=== PATIENT | male | born 1995 | race African-American/Black ===

== ENCOUNTER 2019-04-25 10:07 | Emergency (ER) | payer MEDICAID ==
[~2019-04-25] VITALS: Ht 177.8 cm; Wt 61.2 kg
[2019-04-25 10:14] VITALS: BP 124/67
[2019-04-25 11:01] LABS: Basophils # (auto) 0 uL; Basophils % (auto) 0.4 % (0.0-2.0); Eosinophils # (auto) 0 uL; Eosinophils % (auto) 0.4 % (0.0-7.0); Hematocrit 48.4 % (41.0-53.0); Hemoglobin 16.6 g/dL (13.5-17.5); Lymphocytes # (auto) 1.7 uL; Mean Corpuscular Hemoglobin 29.4 pg (28.0-32.0); Mean Corpuscular Hgb Conc. 34.2 g/dL (32.0-36.0); Mean Corpuscular Volume 85.8 fL (80.0-100.0); Monocytes # (auto) 0.5 uL; Monocytes % (auto) 7.2 % (0.0-12.0); Nucleated Red Blood Cells % 0.1 %; Platelet Count (auto) 208 10^3/uL (140-450); Red Blood Cells 5.64 10^6/uL (4.5-5.90); Red Cell Distribution Width 13.5 % (11.8-14.3); White Blood Cell 7.3 10^3/uL (4.4-10.8)
[2019-04-25 11:21] LABS: Anion Gap 6 (5-15); Blood Urea Nitrogen 8 mg/dL (7-18); Carbon Dioxide 27 mmol/L (21-32); Chloride 106 mmol/L (98-107); Glucose 81 mg/dL (74-106); Potassium 3.7 mmol/L (3.5-5.1); Sodium 139 mmol/L (136-145)
[2019-04-25 11:27] LABS: BUN/Creatinine Ratio 10.5; GFR African American 161 mL/min; GFR Non-African American 133 mL/min
== END 2019-04-25 11:57 | disposition home or self-care (01) ==
LOC: ER 10:07
DX: R07.89 Other chest pain (principal); R20.2 Paresthesia of skin
CPT/HCPCS: 36415; 71046; 80048; 84484; 85025; 93005

== ENCOUNTER 2019-06-03 10:17 | Emergency (ER) | payer OTHER, MEDICAID ==
[~2019-06-03] VITALS: Ht 175.3 cm; Wt 63.5 kg
[2019-06-03 11:12] VITALS: BP 118/69
[2019-06-03] MEDS ORDERED: IBUPROFEN 600 MG TAB PO ONE (12:30)
== END 2019-06-03 12:42 | disposition home or self-care (01) ==
LOC: ER 10:17
DX: M62.830 Muscle spasm of back (principal); M54.2 Cervicalgia; M54.6 Pain in thoracic spine; M54.5 Low back pain; V43.52XA Car driver injured in collision with other type car in traffic accident, initial encounter; Y93.89 Activity, other specified; Y92.488 Other paved roadways as the place of occurrence of the external cause; Y99.8 Other external cause status
CPT/HCPCS: 72040; 72100

== ENCOUNTER 2019-10-30 14:14 | Emergency (ER) | payer MEDICAID ==
[~2019-10-30] VITALS: Ht 177.8 cm; Wt 61.2 kg
[2019-10-30 15:54] VITALS: BP 131/71
[2019-10-30] MEDS ORDERED: LIDOCAINE 1% HCL (LOCAL ANESTH.) INJ 20ML MDV IJ ONE (16:45)
== END 2019-10-30 17:35 | disposition home or self-care (01) ==
LOC: ER 14:14
DX: S01.511A Laceration without foreign body of lip, initial encounter (principal); X58.XXXA Exposure to other specified factors, initial encounter; Y93.51 Activity, roller skating (inline) and skateboarding; Y92.89 Other specified places as the place of occurrence of the external cause; Y99.8 Other external cause status
CPT/HCPCS: 12011; 99283; J2001

== ENCOUNTER 2019-11-06 11:33 | Emergency (ER) | payer MEDICAID ==
[~2019-11-06] VITALS: Ht 177.8 cm; Wt 61.2 kg
[2019-11-06 11:39] VITALS: BP 126/87
== END 2019-11-06 12:50 | disposition home or self-care (01) ==
LOC: ER 11:33
DX: S01.511D Laceration without foreign body of lip, subsequent encounter (principal); X58.XXXD Exposure to other specified factors, subsequent encounter

== ENCOUNTER 2019-12-18 20:15 | Emergency (ER) | payer MEDICAID ==
[~2019-12-18] VITALS: Ht 177.8 cm; Wt 61.2 kg
[2019-12-18] MEDS ORDERED: TETRACAINE HCL 0.5% OPTH(EYE) SOLN 4ML LEFTEYE ONE (22:30)
[2019-12-18] MEDS ORDERED: FLUORESCEIN SOD 1 MG TEST STRIP LEFTEYE ONE (22:30)
[2019-12-18 23:15] VITALS: BP 123/68
== END 2019-12-18 23:25 | disposition home or self-care (01) ==
LOC: ER 20:15
DX: H10.89 Other conjunctivitis (principal)

== ENCOUNTER 2020-10-10 18:34 | Emergency (ER) | payer MEDICAID ==
[~2020-10-10] VITALS: Ht 177.8 cm; Wt 61.2 kg
[2020-10-10 18:36] VITALS: BP 151/106
[2020-10-10 19:11] LABS: Urine Bacteria NONE SEEN /hpf (None Seen); Urine Blood Negative /uL (Negative); Urine Mucus FEW (None Seen); Urine Specific Gravity 1.034 (1.001-1.035); Urine WBC 5 /hpf (0 - 3)
[2020-10-10 19:16] LABS: Cannabinoid Screen, Urine POSITIVE (NEGATIVE)
[2020-10-10 19:24] LABS: Amphetamine Screen, Urine NEGATIVE (NEGATIVE); Barbiturate Scree,Urine NEGATIVE (NEGATIVE); Benzodiazephine Screen, Urine NEGATIVE (NEGATIVE); Cocaine Screen, Urine POSITIVE (NEGATIVE); Opiate Scree,Urine NEGATIVE (NEGATIVE); Phencyclidine Screen, Urine NEGATIVE (NEGATIVE)
== END 2020-10-10 20:37 | disposition left against medical advice (07) ==
LOC: ER 18:36
DX: R10.84 Generalized abdominal pain (principal); R11.2 Nausea with vomiting, unspecified; Z53.21 Procedure and treatment not carried out due to patient leaving prior to being seen by health care provider
CPT/HCPCS: 80307; 81001

== ENCOUNTER 2020-12-30 19:22 | Emergency (ER) | payer MEDICAID ==
[~2020-12-30] VITALS: Ht 177.8 cm; Wt 63.5 kg
[2020-12-30 19:37] VITALS: BP 162/107
[2020-12-30] MEDS ORDERED: ONDANSETRON ODT 4 MG TAB PO ONE (19:45)
[2020-12-30 20:42] LABS: Basophils # (auto) 0 10 ^3/uL (0-0.2); Basophils % (auto) 0.3 % (0.0-2.0); Eosinophils # (auto) 0 10 ^3/uL (0-0.8); Eosinophils % (auto) 0.4 % (0.0-7.0); Hematocrit 48.6 % (41.0-53.0); Hemoglobin 16.8 g/dL (13.5-17.5); Lymphocytes # (auto) 1.4 10 ^3/uL (0.4-5.4); Lymphocytes % (auto) 13.5 % (10.0-50.0); Mean Corpuscular Hemoglobin 30.8 pg (28.0-32.0); Mean Corpuscular Hgb Conc. 34.5 g/dL (32.0-36.0); Mean Corpuscular Volume 89.2 fL (80.0-100.0); Monocytes # (auto) 0.8 10 ^3/uL (0-1.3); Monocytes % (auto) 7.7 % (0.0-12.0); Neutrophils # (auto) 8.4 10 ^3/uL (1.6-8.6); Neutrophils % (auto) 78.1 % (37.0-80.0); Nucleated Red Blood Cells % 0.1 %; Red Blood Cells 5.45 10^6/uL (4.5-5.90); Red Cell Distribution Width 13.3 % (11.8-14.3); White Blood Cell 10.7 10^3/uL (4.4-10.8)
[2020-12-30 21:13] LABS: Albumin 4.2 g/dL (3.4-5.0); Calcium 9.6 mg/dL (8.5-10.1); Potassium 4.4 mmol/L (3.5-5.1)
[2020-12-30 21:15] LABS: Urine Amorphous Crystal FEW /hpf (None Seen); Urine Bacteria NONE SEEN /hpf (None Seen); Urine Blood Negative /uL (Negative); Urine Specific Gravity 1.017 (1.001-1.035); Urine WBC 4 /hpf (0 - 3); Urine WBC Clumps PRESENT /hpf (None Seen)
[2020-12-30 21:15] LABS: BUN/Creatinine Ratio 11.1; Bilirubin, Total 0.9 mg/dL (0.2-1.0); Total Protein 7.7 g/dL (6.4-8.2)
== END 2020-12-30 23:58 | disposition left against medical advice (07) ==
LOC: ER 19:32
DX: R10.9 Unspecified abdominal pain (principal); R11.2 Nausea with vomiting, unspecified; Z53.21 Procedure and treatment not carried out due to patient leaving prior to being seen by health care provider
CPT/HCPCS: 36415; 80053; 81001; 85025; Q0162

== ENCOUNTER 2023-08-19 10:50 | Emergency (ER) | payer MEDICAID ==
[~2023-08-19] VITALS: Ht 175.3 cm; Wt 63.0 kg
[2023-08-19 11:20] VITALS: BP 156/92; PULSE 55; RESP 18; TEMP 98.1; O2SAT 99
[2023-08-19] MEDS ORDERED: IBUP-1454 PO (11:25)
[2023-08-19] MEDS ORDERED: CEPH500C PO (11:25)
== END 2023-08-19 11:28 | disposition home or self-care (01) ==
LOC: ER 10:50
DX: L08.89 Other specified local infections of the skin and subcutaneous tissue (principal); Z79.899 Other long term (current) drug therapy

== ENCOUNTER 2023-08-21 05:54 | Emergency (ER) | payer MEDICAID ==
[~2023-08-21] VITALS: Ht 175.3 cm; Wt 64.3 kg
[~2023-08-21 05:54] MED LIST: CEPH500C PO; IBUP-1454 PO
[2023-08-21] MEDS: KETOROLAC TROMETH 30 MG/ML 1ML VIAL IM ONE (07:36)
[2023-08-21 07:41] VITALS: BP 149/86; PULSE 72; RESP 20; TEMP 96.9; O2SAT 100
== END 2023-08-21 08:42 | disposition home or self-care (01) ==
LOC: ER 05:54
DX: L02.31 Cutaneous abscess of buttock (principal)
CPT/HCPCS: 10060; 96372; 99283; J1885

== ENCOUNTER 2023-10-14 23:16 | Emergency (ER) | payer MEDICAID ==
[~2023-10-14] VITALS: Ht 182.9 cm; Wt 95.0 kg
[2023-10-14] MEDS: SODIUM CHLORIDE 0.9% 1,000 ML IV ONE (23:30)
[2023-10-14] MEDS: ONDANSETRON ODT 4 MG TAB PO ONE (23:30)
[2023-10-14 23:47] LABS: Basophils # (auto) 0.1 10 ^3/uL (0-0.2); Basophils % (auto) 0.8 % (0.0-2.0); Eosinophils # (auto) 0.1 10 ^3/uL (0-0.8); Eosinophils % (auto) 0.8 % (0.0-7.0); Hematocrit 48.8 % (41.0-53.0); Hemoglobin 16.7 g/dL (13.5-17.5); Lymphocytes # (auto) 4.5 10 ^3/uL (0.4-5.4); Lymphocytes % (auto) 42.7 % (10.0-50.0); Mean Corpuscular Hemoglobin 29.8 pg (28.0-32.0); Mean Corpuscular Hgb Conc. 34.2 g/dL (32.0-36.0); Mean Corpuscular Volume 87.1 fL (80.0-100.0); Monocytes # (auto) 0.4 10 ^3/uL (0-1.3); Monocytes % (auto) 4.2 % (0.0-12.0); Neutrophils # (auto) 5.4 10 ^3/uL (1.6-8.6); Neutrophils % (auto) 51.5 % (37.0-80.0); Nucleated Red Blood Cells % 0.2 %; Red Cell Distribution Width 13.7 % (11.8-14.3); White Blood Cell 10.5 10^3/uL (4.4-10.8)
[2023-10-14 23:56] LABS: Chloride 110 mmol/L (98-107); Potassium 3.6 mmol/L (3.5-5.1); Sodium 141 mmol/L (136-145)
[2023-10-14 23:57] LABS: Anion Gap 6 (5-15); Carbon Dioxide 25 mmol/L (20-30)
[2023-10-14 23:58] LABS: Calcium 8.9 mg/dL (8.7-10.4)
[2023-10-15 00:02] LABS: BUN/Creatinine Ratio 6.6 (10.0-20.0); Blood Urea Nitrogen 5 mg/dL (9-23); Glucose 96 mg/dL (74-106)
[2023-10-15 00:12] LABS: Blood Alcohol 303.2 mg/dL (<10)
[2023-10-15] MEDS: TETANUS-DIPTH-ACEL PERTUSSIS 0.5ML SYR Tdap IM ONE (01:30)
[2023-10-15] MEDS: NEOMYCIN-BACITRACIN-POLYM UNITDOSE PKG TOP OINT TOP ONE (01:30)
[2023-10-15] MEDS ORDERED: BACIOIN15 TOP (01:42)
[2023-10-15] MEDS ORDERED: ACET500T58 PO (01:42)
[2023-10-15 03:30] VITALS: BP 101/45; PULSE 53; RESP 12; O2SAT 93
== END 2023-10-15 05:10 | disposition home or self-care (01) ==
LOC: EDBD 23:16 → ER 23:16
DX: S00.83XA Contusion of other part of head, initial encounter (principal); G93.41 Metabolic encephalopathy; F10.10 Alcohol abuse, uncomplicated; R60.0 Localized edema; R41.82 Altered mental status, unspecified; X58.XXXA Exposure to other specified factors, initial encounter; Y93.89 Activity, other specified; Y92.89 Other specified places as the place of occurrence of the external cause; Y99.8 Other external cause status
CPT/HCPCS: 36415; 70450; 72125; 80048; 80320; 85025; 96360; 99284; J7030